=== PATIENT | male | born 1935 | race Caucasian/White ===

== ENCOUNTER 2018-11-10 08:12 | Inpatient (IN) | payer MEDICARE, OTHER ==
[~2018-11-10 08:12] MED LIST: DESFLURANE 15 MIN
[2018-11-10] MEDS: DEXAMETHASONE 1 MG TAB PO (09:16)
[2018-11-10] MEDS: GABAPENTIN 300 MG CAP PO ×2 (09:16→20:26)
[2018-11-10] MEDS ORDERED: BUPIVACAINE 0.5%/EPI (SDV) 30 ML INJ (09:31)
[2018-11-10] MEDS ORDERED: MIDAZOLAM 1 MG/ML 2 ML INJ (09:50)
[2018-11-10] MEDS ORDERED: ROPIVACAINE 0.5 % 30 ML VIAL (09:51)
[2018-11-10] MEDS: TRANEXAMIC ACID 1,000 MG in DEXTROSE 5% 100 ML IVPB (11:45)
[2018-11-10] MEDS: POLYMYXIN/BACITRACIN 1L IRRIG (11:58)
[2018-11-10] MEDS: BUPIVACAINE 0.5% (SDV) 30 ML, morphine SULFATE (PF) 8 MG, EPINEPHrine 0.3 MG, KETOROLAC... IRR (11:58)
[2018-11-10] MEDS: CA CHLORIDE 10% 10 ML SYRINGE (11:59)
[2018-11-10] MEDS: THROMBIN 5000 UNIT VIAL (11:59)
[2018-11-10] MEDS ORDERED: DEXAMETHASONE 4 MG/ML 5 ML INJ (12:15)
[2018-11-10] MEDS ORDERED: ONDANSETRON 4 MG INJ (12:15)
[2018-11-10] MEDS ORDERED: NEOSTIGMINE 3 MG/3 ML SYRINGE (13:27)
[2018-11-10] MEDS ORDERED: CEFAZOLIN 1 GM INJ (13:27)
[2018-11-10] MEDS ORDERED: GLYCOPYRROLATE 0.4 MG INJ (13:27)
[2018-11-10] MEDS ORDERED: LOPERAMIDE 2 MG CAP PO (13:30)
[2018-11-10] MEDS ORDERED: clonAZEPAM 0.5 MG TAB PO (13:30)
[2018-11-10] MEDS ORDERED: ONDANSETRON 4 MG INJ IV ×2 (13:30→14:00)
[2018-11-10] MEDS ORDERED: DIPHENHYDRAMINE 50 MG INJ IV ×2 (13:30→14:00)
[2018-11-10] MEDS ORDERED: NACL 0.9% 3 ML SYG IV (13:30)
[2018-11-10] MEDS ORDERED: HYDROmorphONE 1 MG/ML SYG IV (13:30)
[2018-11-10] MEDS ORDERED: oxyCODONE 5 MG TAB PO ×2 (13:30)
[2018-11-10] MEDS ORDERED: KETOROLAC 15 MG INJ IV (13:30)
[2018-11-10] MEDS ORDERED: MAGNESIUM HYDROXIDE 30ML CUP PO (13:30)
[2018-11-10] MEDS: TRANEXAMIC ACID 1,000 MG in SOD CHLORIDE 0.9% 100 ML IVPB (13:48)
[2018-11-10] MEDS: CEFAZOLIN 1 GM/50 ML (PMX) 50 ML IVPB ×2 (13:51→21:28)
[2018-11-10] MEDS ORDERED: hydrALAzine 20 MG INJ IV (14:00)
[2018-11-10] MEDS ORDERED: LABETALOL HCL 20MG INJ IV (14:00)
[2018-11-10] MEDS ORDERED: MEPERIDINE 25 MG INJ IV (14:00)
[2018-11-10] MEDS ORDERED: ALBUTEROL 0.083% (NEB) 2.5 MG/3 ML AMP HHN (14:00)
[2018-11-10] MEDS ORDERED: MIDAZOLAM 1 MG/ML 2 ML INJ IV (14:00)
[2018-11-10] MEDS ORDERED: FENTAnyl 50 MCG/ML VIAL IV ×3 (14:00)
[2018-11-10] MEDS ORDERED: OXYCODONE/ACETAMINOPHEN (5/325) TAB PO ×2 (14:00)
[2018-11-10] MEDS ORDERED: METOCLOPRAMIDE 10 MG INJ IV (14:00)
[2018-11-10] MEDS ORDERED: KETOROLAC 30 MG INJ IV (14:00)
[2018-11-10] MEDS ORDERED: HYDROmorphONE 1 MG/5 ML IV SYRINGE IV ×3 (14:00)
[2018-11-10] MEDS ORDERED: EPHEDrine SULFATE 50 MG/5 ML SYG IV (14:00)
[2018-11-10] MEDS: CEFAZOLIN 2 GM/50 ML (PMX) 50 ML IVPB (15:08)
[2018-11-10] MEDS: DEXAMETHASONE 2 MG TAB PO ×2 (17:57→23:24)
[2018-11-10] MEDS: ACETAMINOPHEN 500 MG TAB PO ×2 (17:57→23:24)
[2018-11-10] MEDS: RANITIDINE 150 MG TAB PO (20:26)
[2018-11-10] MEDS: ATORVASTATIN 80 MG TAB PO (20:26)
[2018-11-10] MEDS: SENNA/DOCUSATE NA (8.6MG/50MG) TAB PO (20:26)
[2018-11-10] MEDS: ZOLPIDEM 5 MG TAB PO (23:24)
[2018-11-11] MEDS: CEFAZOLIN 1 GM/50 ML (PMX) 50 ML IVPB (04:50)
[2018-11-11] MEDS: ACETAMINOPHEN 500 MG TAB PO ×2 (05:43→11:57)
[2018-11-11] MEDS: DEXAMETHASONE 2 MG TAB PO ×2 (05:43→11:57)
[2018-11-11] MEDS: SENNA/DOCUSATE NA (8.6MG/50MG) TAB PO (09:11)
[2018-11-11] MEDS: oxyCODONE 5 MG TAB PO ×2 (11:15→11:40)
== END 2018-11-11 12:35 | disposition home or self-care (01) | DRG 483 ==
LOC: REC 08:12 → MS1 14:48
PROC: 0RRK00Z Replacement of Left Shoulder Joint with Reverse Ball and Socket Synthetic Substitute, Open Approach (ICD-10-PCS; principal; 2018-11-10 10:30)
PROC: 0RPK0JZ Removal of Synthetic Substitute from Left Shoulder Joint, Open Approach (ICD-10-PCS; 2018-11-10 10:30)
DX: T84.028A Dislocation of other internal joint prosthesis, initial encounter (principal); X50.9XXA Other and unspecified overexertion or strenuous movements or postures, initial encounter; Z96.612 Presence of left artificial shoulder joint
CPT/HCPCS: 71045; 73030; 86999; 88300